=== PATIENT | male | born 1980 | race Caucasian/White ===

== ENCOUNTER 2020-03-21 20:44 | Emergency (ER) | payer SELFPAY ==
[~2020-03-21] VITALS: Ht 172.7 cm; Wt 72.7 kg
[2020-03-21 21:00] VITALS: BP 138/83
[2020-03-21] MEDS ORDERED: proparacaine 0.5% ophthalmic drops 15ml EACHEYE ONE (22:05)
[2020-03-21] MEDS ORDERED: ERYT1OIN6 LEFTEYE (22:28)
[2020-03-21] MEDS ORDERED: erythromycin ophthalmic ointment 1gm tube LEFTEYE ONE (22:30)
== END 2020-03-21 22:40 | disposition home or self-care (01) ==
LOC: ER 20:45
DX: S05.02XA Injury of conjunctiva and corneal abrasion without foreign body, left eye, initial encounter (principal); F17.210 Nicotine dependence, cigarettes, uncomplicated; F12.90 Cannabis use, unspecified, uncomplicated; Z88.8 Allergy status to other drugs, medicaments and biological substances; Z79.2 Long term (current) use of antibiotics; X58.XXXA Exposure to other specified factors, initial encounter; Y93.89 Activity, other specified; Y92.89 Other specified places as the place of occurrence of the external cause; Y99.8 Other external cause status
CPT/HCPCS: 99283

== ENCOUNTER 2020-03-30 18:44 | Emergency (ER) | payer OTHER ==
[~2020-03-30] VITALS: Ht 172.7 cm; Wt 72.7 kg
[~2020-03-30 18:44] MED LIST: ERYT1OIN6 LEFTEYE
[2020-03-30 18:54] VITALS: BP 135/82
[2020-03-30] MEDS ORDERED: TETRAcaine 0.5% ophthalmic drops 15ml LEFTEYE ONE (19:10)
[2020-03-30] MEDS ORDERED: proparacaine 0.5% ophthalmic drops 15ml EACHEYE ONE (19:15)
[2020-03-30] MEDS ORDERED: erythromycin ophthalmic ointment 1gm tube LEFTEYE ONE (19:30)
== END 2020-03-30 19:45 | disposition home or self-care (01) ==
LOC: ER 18:44
DX: T15.12XA Foreign body in conjunctival sac, left eye, initial encounter (principal); H57.12 Ocular pain, left eye; F12.90 Cannabis use, unspecified, uncomplicated; Z88.8 Allergy status to other drugs, medicaments and biological substances; Z79.2 Long term (current) use of antibiotics; X58.XXXA Exposure to other specified factors, initial encounter; Y93.89 Activity, other specified; Y92.89 Other specified places as the place of occurrence of the external cause; Y99.8 Other external cause status
CPT/HCPCS: 99284

== ENCOUNTER 2022-06-23 23:10 | Emergency (ER) | payer SELFPAY ==
[~2022-06-23] VITALS: Ht 172.7 cm; Wt 68.0 kg
[2022-06-23 23:16] VITALS: BP 158/93
[2022-06-23] MEDS ORDERED: AMOX-100 PO (23:23)
[2022-06-23] MEDS ORDERED: IBUP-1986 PO (23:23)
[2022-06-23] MEDS ORDERED: amoxicillin 250mg capsule PO ONE (23:35)
[2022-06-23] MEDS ORDERED: ibuprofen tablet 400 MG TABLET PO ONE (23:35)
== END 2022-06-23 23:43 | disposition home or self-care (01) ==
LOC: ER 23:11
DX: K08.89 Other specified disorders of teeth and supporting structures (principal); F12.90 Cannabis use, unspecified, uncomplicated; Z56.0 Unemployment, unspecified; Z79.2 Long term (current) use of antibiotics; Z88.5 Allergy status to narcotic agent
CPT/HCPCS: 99283

== ENCOUNTER 2022-11-13 10:59 | Emergency (ER) | payer MEDICAID ==
[~2022-11-13] VITALS: Ht 173.4 cm; Wt 72.7 kg
[~2022-11-13 10:59] MED LIST changes: -ERYT1OIN6 LEFTEYE; +IBUP-1986 PO
[2022-11-13 11:15] VITALS: TEMP 98.4
[2022-11-13 12:01] LABS: ALANINE AMINOTRANSFERASE 30 U/L (12-78); ALBUMIN 3.4 G/DL (3.4-5.0); ALBUMIN/GLOBULIN RATIO 0.7 (1.1-1.5); ALKALINE PHOSPHATASE 90 IU/L (46-116); ASPARTATE AMINO TRANSFERASE 35 U/L (10-37); BILIRUBIN,TOTAL 0.3 MG/DL (0.1-1.0); CALCIUM 9.3 MG/DL (8.5-10.1); TOTAL CARBON DIOXIDE 28.6 MMOL/L (24-32)
[2022-11-13 12:05] LABS: BASOPHILS # (AUTO) 0.1 X10'3 (0-0.2); BASOPHILS % (AUTO) 1.1 % (0-1); EOSINOPHILS # (AUTO) 0.1 X10'3 (0-0.9); EOSINOPHILS % (AUTO) 0.9 % (0-6); HEMATOCRIT 49.1 % (42.0-52.0); HEMOGLOBIN 16.8 g/dl (14.0-17.9); LYMPHOCYTES # (AUTO) 3.9 X10'3 (1.1-4.8); LYMPHOCYTES % (AUTO) 41.1 % (21-51); MEAN CORPUSCULAR HEMOGLOBIN 30.1 PG (27.0-31.0); MEAN CORPUSCULAR HGB CONC 34.1 g/dL (33.0-36.5); MEAN CORPUSCULAR VOLUME 88.4 FL (78-98); MONOCYTES # (AUTO) 1.4 X10'3 (0-0.9); MONOCYTES % (AUTO) 14.3 % (2-12); NEUTROPHILS # (AUTO) 4.1 X10'3 (1.8-7.7); NEUTROPHILS % (AUTO) 42.6 % (42-75); PLATELET COUNT 277 X10'3 (140-440); RED BLOOD COUNT 5.56 X10'6 (4.70-6.10); WHITE BLOOD COUNT 9.6 X10'3 (4.5-11.0)
[2022-11-13 12:08] LABS: PRO BRAIN NATRIURETIC PEPTIDE 73 PG/ML (0-125)
[2022-11-13 12:44] LABS: ANION GAP 9 (8-16); BLOOD UREA NITROGEN 8 MG/DL (7-18); BUN/CREATININE RATIO 7.5 (10.0-20.0); CHLORIDE 100 MMOL/L (99-107); CREATININE 1.07 MG/DL (0.60-1.10); GLUCOSE 98 MG/DL (70-104); POTASSIUM 3.4 MMOL/L (3.5-5.1); SODIUM 138 MMOL/L (135-145); eCRCL 86 ML/MIN; eGFR 75 ML/MIN
[2022-11-13 14:37] LABS: BASOPHILS # (AUTO) 0.1 X10'3 (0-0.2); BASOPHILS % (AUTO) 0.9 % (0-1); EOSINOPHILS # (AUTO) 0.1 X10'3 (0-0.9); EOSINOPHILS % (AUTO) 1.2 % (0-6); HEMATOCRIT 46.7 % (42.0-52.0); HEMOGLOBIN 15.8 g/dl (14.0-17.9); LYMPHOCYTES # (AUTO) 3.7 X10'3 (1.1-4.8); LYMPHOCYTES % (AUTO) 35.3 % (21-51); MEAN CORPUSCULAR HEMOGLOBIN 29.9 PG (27.0-31.0); MEAN CORPUSCULAR HGB CONC 33.8 g/dL (33.0-36.5); MEAN CORPUSCULAR VOLUME 88.4 FL (78-98); MEAN PLATELET VOLUME 8.6 FL (7.4-10.4); MONOCYTES # (AUTO) 1.5 X10'3 (0-0.9); MONOCYTES % (AUTO) 14.4 % (2-12); NEUTROPHILS # (AUTO) 5.1 X10'3 (1.8-7.7); NEUTROPHILS % (AUTO) 48.2 % (42-75); PLATELET COUNT 283 X10'3 (140-440); RED BLOOD COUNT 5.28 X10'6 (4.70-6.10); RED CELL DISTRIBUTION WIDTH 13.9 % (11.5-14.5); WHITE BLOOD COUNT 10.5 X10'3 (4.5-11.0)
[2022-11-13 14:55] LABS: LIPASE 66 U/L (73-393)
--- NOTE | 2022-11-13 15:07 | NUR ---
COVID POSITIVE PRIMARY NOTIFIED
[2022-11-13] MEDS ORDERED: NIRM1TAB PO (15:24)
[2022-11-13 15:57] VITALS: BP 122/90; PULSE 66; RESP 18; O2SAT 96
== END 2022-11-13 15:55 | disposition home or self-care (01) ==
LOC: ER 11:00
DX: U07.1 COVID-19 (principal); Z88.6 Allergy status to analgesic agent; Z79.899 Other long term (current) drug therapy
CPT/HCPCS: 36415; 71045; 80053; 83690; 83880; 84484; 85025; 87502; 87503; 87811; 93005; 99285

== ENCOUNTER 2023-04-06 11:59 | Emergency (ER) | payer SELFPAY ==
[~2023-04-06] VITALS: Ht 172.7 cm; Wt 72.7 kg
[~2023-04-06 11:59] MED LIST changes: +NIRM1TAB PO
[2023-04-06 12:11] VITALS: TEMP 97.9
[2023-04-06 14:45] VITALS: BP 153/94
[2023-04-06] MEDS ORDERED: IBUP-1984 PO (15:33)
[2023-04-06] MEDS ORDERED: PENI500T2 PO (15:33)
[2023-04-06] MEDS ORDERED: ketorolac trometh. 30mg/ml inj. IM ONE (15:35)
[2023-04-06 16:16] VITALS: PULSE 84; RESP 18; O2SAT 94
== END 2023-04-06 16:15 | disposition home or self-care (01) ==
LOC: ER 11:59
DX: K04.7 Periapical abscess without sinus (principal); F12.10 Cannabis abuse, uncomplicated; Z88.6 Allergy status to analgesic agent; Z79.899 Other long term (current) drug therapy
CPT/HCPCS: 96372; 99283; J1885